=== PATIENT | male | born 1950 | race Caucasian/White ===

== ENCOUNTER 2018-12-01 19:01 | Emergency (ER) | payer MEDICARE, BC ==
[2018-12-01 19:31] VITALS: BP 178/80; PULSE 65
--- NOTE | 2018-12-01 19:43 | EDM.PDOC ---
ED HPI GENERAL MEDICAL PROBLEM - General Chief Complaint: Lower Extremity Injury/Pain Stated Complaint: RT ANKLE PAIN Time Seen by Provider: 12/01/18 19:40 Source of Information: Reports: Patient, Family History Limitations: Reports: No Limitations - History of Present Illness INITIAL COMMENTS - FREE TEXT/NARRATIVE: Twisted right ankle at home. Mild-Moderate pain on weight bearing. Has taken some Tylenol. Ice. Right Ankle Pain Score (Numeric/FACES): 3 - Related Data Allergies Allergy/AdvReac Type Severity Reaction Status Date / Time No Known Allergies Allergy Verified 12/01/18 19:19 Home Meds: Home Meds . [Unable to Verify Home Med List] 12/01/18 [History] Past Medical History Cardiovascular History: Reports: High Cholesterol, Hypertension, [place] Gastrointestinal History: Reports: GERD Musculoskeletal History: Reports: Back Pain, Chronic Other Musculoskeletal History: back surgery 05/09/15 Neurological History: Reports: CVA Oncologic (Cancer) History: Reports: Other (See Below) Other Oncologic History: skin Dermatologic History: Reports: Other (See Below) Other Dermatologic History: hx of skin cancer - Past Surgical History GI Surgical History: Reports: Hernia, Inguinal Neurological Surgical History: Reports: Lumbar Spine, Spinal Fusion Musculoskeletal Surgical History: Reports: Other (See Below) Other Musculoskeletal Surgeries/Procedures:: back surgery Social & Family History - Family History Family Medical History: Noncontributory - Tobacco Use Smoking Status *Q: Never Smoker - Recreational Drug Use Recreational Drug Use: No Review of Systems - Review of Systems Review Of Systems: ROS reveals no pertinent complaints other than HPI. ED EXAM, GENERAL - Physical Exam Exam: See Below Exam Limited By: No Limitations General Appearance: Alert Extremities: Other (Rt ankle mild effusion. tender lateral malleolus.Normal dosales pedis pulse) Neurological: Alert Psychiatric: Normal Affect Course - Vital Signs Last Recorded V/S: Last Vital Signs Temp 97.5 F 12/01/18 19:10 Pulse 65 12/01/18 19:10 Resp 19 12/01/18 19:10 BP 178/80 H 12/01/18 19:10 Pulse Ox 97 12/01/18 19:10 - Orders/Labs/Meds Orders: Active Orders 24 hr Category Date Time Status Ankle Min 3V Rt [CR] Stat Exams 12/01/18 19:15 Taken Departure - Departure Time of Disposition: 19:42 Disposition: Home, Self-Care 01 Condition: Good Clinical Impression: Sprained ankle - Discharge Information Instructions: RICE Therapy for Routine Care of Injuries, [id number] Referrals: Juan Gramajo MD [Primary Care Provider] - Forms: ED Department Discharge - Problem List & Annotations (1) Sprained ankle SNOMED Code(s): 44385071 Code(s): S93.409A - SPRAIN OF UNSP LIGAMENT OF UNSPECIFIED ANKLE, INIT ENCNTR Status: Acute Qualifiers: Encounter type: initial encounter Laterality: right - Problem List Review Problem List Initiated/Reviewed/Updated: Yes - My Orders Last 24 Hours: My Active Orders 12/01/18 19:15 Ankle Min 3V Rt [CR] Stat - Assessment/Plan Last 24 Hours: My Active Orders 12/01/18 19:15 Ankle Min 3V Rt [CR] Stat Plan: RICE. Xray reviewed and found to be negative
--- NOTE | 2018-12-02 12:54 | CR ---
INDICATION: Ankle injury - felt a pop. RIGHT ANKLE: Four views of the right ankle were obtained, 12/01/18 - no comparisons. Soft tissue swelling is noted overlying the lateral malleolus. There is also noted slight asymmetry in the ankle joint space, which is slightly widened laterally, raising question of ligamentous strain laterally. This could be confirmed by MRI or possibly stress imaging. Otherwise, no evidence of acute injury is identified - no acute fracture or dislocation was seen. A small plantar calcaneal spur is noted. IMPRESSION: 1. Possible lateral ligamentous strain - correlate clinically as to necessity for additional imaging. 2. Tiny plantar calcaneal spur. MTDD
== END 2018-12-01 19:50 | disposition home or self-care (01) ==
LOC: FB.ED 19:01
DX: S93.401A Sprain of unspecified ligament of right ankle, initial encounter (principal); I10 Essential (primary) hypertension; I25.2 Old myocardial infarction; X50.1XXA Overexertion from prolonged static or awkward postures, initial encounter; Y92.009 Unspecified place in unspecified non-institutional (private) residence as the place of occurrence of the external cause; Y93.9 Activity, unspecified; Y93.01 Activity, walking, marching and hiking
CPT/HCPCS: 73610-RT; 99283-25